=== PATIENT | female | born 1940 | race Caucasian/White ===

== ENCOUNTER 2018-03-14 19:11 | Inpatient (IN) | payer MEDICARE, OTHER ==
--- NOTE | 2018-03-14 20:37 | ED PDOC ---
Arrival/HPI - General Chief Complaint: Chest Pain Time Seen by Provider: 03/14/18 19:15 Historian: Patient - History of Present Illness Narrative History of Present Illness (Text): 03/14/18 20:42 A 77 year old female, whose past medical history includes hypertension, CVA, TIA, diabetes type 2, anemia, arthritis and depress, presents to the emergency department complaining of chest pain and right groin pain with associated bilat eral leg pain, worsens with leg movement. Patient reports PC began around 15:00 today, states when moving around she experiences chest tightness. States she took Aspirin and had relief. Patient notes also noticing right breast lump, to which she experiences pain to touch. Mentions last mammogram was 06/2017, and is due soon for her next one. Patient denies any abdominal pain, or any other complaints at this time. Denies any history of [place]. PMD: Dr. Payton Cruz Past Medical History - Provider Review Nursing Documentation Reviewed: Yes - Infectious Disease Hx of Infectious Diseases: None - Tetanus Immunization Tetanus Immunization: Up to Date - Cardiac Hx Hypertension: Yes Hx Pacemaker: No Hx Peripheral Edema: Yes - Pulmonary Hx Asthma: No - Neurological HX Cerebrovascular Accident: Yes Hx Seizures: No Hx Transient Ischemic Attacks (TIA): Yes - HEENT Hx Difficulty Chewing: No - Endocrine/Metabolic Hx Diabetes Mellitus Type 2: Yes - Hematological/Oncological Hx Anemia: Yes Hx Cancer: No - Musculoskeletal/Rheumatological Hx Arthritis: Yes - Gastrointestinal HX Swallowing Problems: Yes - Genitourinary/Gynecological Hx Hematuria: Yes - Psychiatric Hx Depression: Yes Hx Emotional Abuse: No Hx Physical Abuse: No Hx Substance Use: No - Surgical History Hx Amputation: No Hx Cholecystectomy: Yes Hx Hysterectomy: Yes Hx Tubal Ligation: Yes - Anesthesia Hx Anesthesia: No Hx Anesthesia Reactions: No Hx Malignant Hyperthermia: No - Suicidal Assessment Feels Threatened In Home Enviroment: No Family/Social History - Physician Review Nursing Documentation Reviewed: Yes Family/Social History: No Known Family HX Smoking Status: Never Smoked Hx Alcohol Use: No Hx Substance Use: No Hx Substance Use Treatment: No Allergies/Home Meds Allergies/Adverse Reactions: Allergies No Known Allergies Allergy (Verified 05/19/12 14:13) Home Medications: Home Meds Medication Instructions Recorded Confirmed DULoxetine [Cymbalta] 60 mg PO DAILY 07/17/12 07/17/12 Doxazosin Mesylate [Cardura] 1 mg PO DAILY 07/17/12 07/17/12 Valsartan [Diovan] 320 mg PO DAILY 07/17/12 07/17/12 Atorvastatin Calcium [Lipitor] 40 mg PO DAILY 09/02/12 09/02/12 Dexlansoprazole [Dexilant] 60 mg PO DAILY 09/02/12 09/02/12 Hydroxyzine Hydrochloride 25 mg PO Q8 09/02/12 09/02/12 [Hydroxyzine HCl] Nebivolol Hydrochloride [Bystolic] 2.5 mg PO DAILY 09/02/12 09/02/12 RX: Aspirin 325 mg PO DAILY 09/02/12 09/02/12 RX: Fentanyl 25 mcg TD Q3 09/02/12 09/02/12 Ropinirole Hydrochloride [Requip] 0.25 mg PO HS 09/02/12 09/02/12 SITagliptin [Januvia] 50 mg PO DAILY 09/02/12 09/02/12 Tramadol Hydrochloride [Tramadol 50 mg PO 09/02/12 09/02/12 HCl] Review of Systems - Physician Review All systems were reviewed & negative as marked: Yes - Review of Systems Cardiovascular: Chest Pain Gastrointestinal: absent: Abdominal Pain Genitourinary Female: Other (right groin pain associated with bilateral leg pain, worsens with leg movement.) Skin: Other (right-side breast lump) Physical Exam - Physical Exam Narrative Physical Exam (Text): Gen: VS reviewed, alert, well developed, well nourished, nontoxic, mild distress. ENT: normal pharynx. Eye: EOMI, PERRL. Neck: no JVD, supple, no adenopathy. CV: regular rate, regular rhythm, no rubs, no murmur, no gallops, S1, S2, pulses equal and strong. Pulm: no distress, clear to auscultation, no wheeze, no rhonchi, breath sounds equal, no rales. Abd: soft, nontender, no guarding, no rebound, no rigidity, normal bowel sounds. Ext: no edema. Skin: good color, no rash, no cyanosis. firm mass to right breast at the 9:00 position, adjacent to nipple, no abnormal skin changes, no nipple discharge. Psych: responds appropriately to questions, normal affect. Neuro: oriented x 3, CN2-12 intact grossly, motor intact, sensation intact. Vital Signs Reviewed: Yes Vital Signs Temp Pulse Resp BP Pulse Ox 03/14/18 19:45 98.8 F 63 18 160/96 H 96 Temperature: Afebrile Blood Pressure: Hypertensive Pulse: Regular Respiratory Rate: Normal Appearance: Positive for: Well-Appearing, Non-Toxic, Comfortable Pain Distress: None Mental Status: Positive for: Alert and Oriented X 3 Medical Decision Making ED Course and Treatment: 03/14/18 20:44 Impression: 77 year old female with chest pain and right groin pain with associated bilateral leg pain, worsens with leg movement. Plan: -- EKG -- Abd/Pelvis CT -- Angiography CT -- Tylenol -- Labs -- Reassess and disposition Progress Notes: 03/15/18 00:[address] murrieta, patient to be admitted for CHF. admit resident aware of case at the request of dr. murrieta. patient is concerned about a right breast mass which is clearly present on physical examination- I have personally informed the patient to catch up on mammogram and to seek consultation with a breast surgeon/specialist. patient appeared to understand this recommendation. furthermore, it appears the patient did not want her daughters to know about this her breast mass. - Lab Interpretations I have reviewed the lab results: Yes - RAD Interpretation Narrative RAD Interpretations (Text): 03/15/2018 00:08 Angio Chest CTA CLINICAL HISTORY: Sob note:pt was moving/new iv was used pt moved/unable to cooperate severely limiting exam TECHNIQUE: Axial CTA images of the chest with intravenous contrast using a pulmonary embolism protocol. Reconstructed images were created and reviewed. 564.59 mGy-cm CONTRAST: With; VISI 320 100 ml was administered without incident. COMPARISON: None provided. FINDINGS: PULMONARY ARTERIES Limited IV bolus and limited study since patient could not fully cooperate, nevertheless no definite evidence of central PE. AORTA: There is no evidence for aneurysm or dissection of the thoracic aorta. LUNGS: There is evidence for pulmonary venous congestion compatible with CHF. PLEURAL SPACES : No pleural effusion seen. No pneumothorax evident. HEART: The cardiac silhouette is enlarged. LYMPH NODES: No lymphadenopathy is evident. BONES: No focal osseous abnormality or acute fracture. UPPER ABDOMEN: Images of the upper abdomen are unremarkable. IMPRESSION: 1. The cardiac silhouette is enlarged. 2. There is evidence for pulmonary venous congestion compatible with CHF. 3. Limited IV bolus and limited study since patient could not fully cooperate, nevertheless no definite evidence of central PE. Dictator: Harish Manzano MD Radiology Orders: 03/14/18 20:18 ANGIOGRAPHY DISECTION PROTOCOL [CT] Stat 03/14/18 20:19 ABDOMEN & PELVIS [ABD & PELVIS IV CONTRAST ONLY] [CT] Stat 03/14/18 20:20 LUMBAR SPINE W/O CONTRAST [CT] Stat - EKG Interpretation EKG Interpretation (Text): 03/14/18 20:53 1931: nsr at 64 bpm, nml qrs, nml axis, nonspecific t wave abn Interpreted by ED Physician: Yes - Medication Orders Current Medication Orders: Discontinued Medications Acetaminophen (Tylenol 325mg Tab) 975 mg PO STAT STA Stop: 03/14/18 20:21 Last Admin: 03/14/18 20:35 Dose: 975 mg MAR Pain/Vitals Document 03/14/18 20:35 LA (Rec: 03/14/18 20:36 LA [id number]) Pain Reassessment Is This A Pain ReAssessment? No Location Left, Right or Bilateral Bilateral Upper or Lower Lower Intensity 5 Scale Used Numeric - Scribe Statement The provider has reviewed the documentation as recorded by the Delores Martinez Provider Scribe Attestation: All medical record entries made by the Scribe were at my direction and per sonally dictated by me. I have reviewed the chart and agree that the record accurately reflects my personal performance of the history, physical exam, medical decision making, and the department course for this patient. I have also personally directed, reviewed, and agree with the discharge instructions and disposition. Disposition/Present on Arrival - Present on Arrival Any Indicators Present on Arrival: No History of DVT/PE: No History of Uncontrolled Diabetes: No Urinary Catheter: No History of Decub. Ulcer: No History Surgical Site Infection Following: None - Disposition Have Diagnosis and Disposition been Completed?: Yes Diagnosis: CHF (congestive heart failure) Disposition: HOSPITALIZED Disposition Time: 00:29 Patient Plan: Admission Condition: STABLE Discharge Instructions (ExitCare): Heart Failure (ED) Forms: [employer] (Faroese)
[2018-03-14 20:45] LABS: HEMOGLOBIN 10.9 g/dL (12.0-16.0); MEAN CELL VOLUME 87.7 fl (80.0-105.0); MEAN CORPUSCULAR HEMOGLOBIN 27.5 pg (25.0-35.0); MEAN CORPUSCULAR HGB CONC 31.3 g/dl (31.0-37.0); RBC 3.97 10^6/uL (3.5-6.1)
[2018-03-14 20:46] LABS: BASO # 0.03 K/mm3 (0.0-2.0); BASO % 0.3 % (0.0-3.0); EOS # 0.1 (0.0-0.7); EOS % 1.6 % (1.5-5.0); GRAN # 6.17 (1.4-6.5); GRAN % 68.7 % (50.0-68.0); LYMPH % 22.4 % (22.0-35.0); MEAN PLATELET VOLUME 10.4 fl (7.0-11.0); MONO # 0.6 (0.1-0.6)
[2018-03-14 20:49] LABS: ALB/GLOB RATIO 1.1 (1.1-1.8); ALBUMIN 3.9 g/dL (3.0-4.8); ALT/SGPT 26 U/L (7-56); AST/SGOT 19 U/L (14-36); BLOOD UREA NITROGEN 20 mg/dL (7-21); CALCIUM 9.1 mg/dL (8.4-10.5); GFR NON-AFRICAN AMERICAN 48
[2018-03-14 20:50] LABS: INR 1.12; PARTIAL THROMBOPLASTIN TIME 28.9 Seconds (25.1-36.5); PROTHROMBIN TIME 12.8 SECONDS (9.4-12.5)
[2018-03-14 21:00] LABS: TROPONIN I < 0.01 ng/mL
[2018-03-14] MEDS ORDERED: Iodixanol 320 MG/ML 100 ML BOTTLE IV ONE (22:14)
[2018-03-14] MEDS ORDERED: oxyCODONE 5 mg Immediate Release Tab PO STA (23:48)
--- NOTE | 2018-03-15 01:37 | CP.PCM.HP ---
History of Present Illness - History of Present Illness History of Present Illness: Landon Monge, PGY-1, Internal Medicine History and Physical for Dr. Lobo 77 year old female with past medical history of CVA, TIA, diabetes mellitus type II, anemia, arthritis, depression, hypertension, hyperlipidemia, chronic bila teral lower extremity pain 2/2 to diabetic neuropathy, hypovitamin D, and diverticulosis presents chest pain, groin pain, right arm pain, and bilateral lower extremity pain. Chest pain was pressure like and started 2-3 days ago. She reports that was taking aspirin which was relieving the pain in the past but it no longer relieves the pain. Patient denies shortness of breath and no change in symptoms with laying back to sleep. Patient's groin pain started 3-4 weeks which has been worse with movement. Pain is better with hysingular. Bilateral lower extremity pain has been present for many years and worse with movement. There are no remitting factors. Patient has had right shoulder and arm pain for a few months, which is better with exercise and has no exacerbating factors. Patient denies current headache, change in vision, change in hearing, shortness of breath, nausea, vomiting, diarrhea, dysuria, hematuria. 12-point ROS was unremarkable except for what is mentioned above. PMH: as stated above PSH: cholecystectomy, hysterectomy, uterine polypectomy PMHx: positive for breast cancer, ovarian cancer, stomach cancer SHx: denies alcohol and drug use. Smoked once at 27 years old. denies current cigarette use Allergies: NKDA PMD: Dr. Villegas Home Rx: MAR reviewed Present on Admission - Present on Admission Any Indicators Present on Admission: No Review of Systems - Review of Systems Review of Systems: except for what is mentioned in the HPI Past Patient History - Infectious Disease Hx of Infectious Diseases: None - Tetanus Immunizations Tetanus Immunization: Up to Date - Past Social History Smoking Status: Never Smoked - CARDIAC Hx Hypertension: Yes Hx Pacemaker: No Hx Peripheral Edema: Yes - PULMONARY Hx Asthma: No - NEUROLOGICAL HX Cerebrovascular Accident: Yes Hx Seizures: No Hx Transient Ischemic Attacks (TIA): Yes - HEENT Hx Difficulty Chewing: No - ENDOCRINE/METABOLIC Hx Diabetes Mellitus Type 2: Yes - HEMATOLOGICAL/ONCOLOGICAL Hx Anemia: Yes Hx Cancer: No - MUSCULOSKELETAL/RHEUMATOLOGICAL Hx Arthritis: Yes - GASTROINTESTINAL HX Swallowing Problems: Yes - GENITOURINARY/GYNECOLOGICAL Hx Hematuria: Yes - PSYCHIATRIC Hx Depression: Yes Hx Emotional Abuse: No Hx Physical Abuse: No Hx Substance Use: No - SURGICAL HISTORY Hx Amputation: No Hx Cholecystectomy: Yes Hx Hysterectomy: Yes Hx Tubal Ligation: Yes - ANESTHESIA Hx Anesthesia: No Hx Anesthesia Reactions: No Hx Malignant Hyperthermia: No Meds Allergies/Adverse Reactions: Allergies Allergy/AdvReac Type Severity Reaction Status Date / Time No Known Allergies Allergy Verified 05/19/12 14:13 Physical Exam - Constitutional Appears: Well, Non-toxic, No Acute Distress - Head Exam Head Exam: ATRAUMATIC, NORMAL INSPECTION, NORMOCEPHALIC - Eye Exam Eye Exam: EOMI, PERRL - ENT Exam ENT Exam: Mucous Membranes Moist - Neck Exam Neck exam: Positive for: Normal Inspection - Respiratory Exam Respiratory Exam: Clear to Auscultation Bilateral, NORMAL BREATHING PATTERN - Cardiovascular Exam Cardiovascular Exam: REGULAR RHYTHM, RRR - GI/Abdominal Exam GI & Abdominal Exam: Normal Bowel Sounds, Soft. absent: Tenderness Additional comments: obese - Extremities Exam Extremities exam: Positive for: full ROM Additional comments: nonpitting edema in bilateral lower extremities - Back Exam Back exam: tenderness (right lumbar) - Neurological Exam Neurological exam: Alert, CN II-XII Intact, Normal Gait, Oriented x3 - Skin Skin Exam: Dry, Intact, Normal Color Results - Vital Signs Recent Vital Signs: Last Vital Signs Temp 98.5 F 03/15/18 00:31 Pulse 60 03/15/18 00:31 Resp 18 03/15/18 00:31 BP 150/71 03/15/18 00:56 Pulse Ox 97 03/15/18 00:31 - Labs Result Diagrams: 03/14/18 20:30 03/14/18 20:30 Labs: Laboratory Results - last 24 hr 03/14/18 03/14/18 03/14/18 20:30 20:30 20:30 WBC 9.0 RBC 3.97 Hgb 10.9 L Hct 34.8 L MCV 87.7 MCH 27.5 MCHC 31.3 RDW 13.0 Plt Count 231 MPV 10.4 Gran % 68.7 H Lymph % (Auto) 22.4 [place] % (Auto) 7.0 H Eos % (Auto) 1.6 Baso % (Auto) 0.3 Gran # 6.17 Lymph # (Auto) 2.0 [place] # (Auto) 0.6 Eos # (Auto) 0.1 Baso # (Auto) 0.03 PT 12.8 H INR 1.12 APTT 28.9 Sodium 136 Potassium 4.6 Chloride 99 Carbon Dioxide 31 Anion Gap 11 BUN 20 Creatinine 1.1 Est GFR ( Amer) 58 Est GFR (Non-Af Amer) 48 Random Glucose 98 Calcium 9.1 Total Bilirubin 0.7 AST 19 ALT 26 Alkaline Phosphatase 96 Troponin I < 0.01 Total Protein 7.5 Albumin 3.9 Globulin 3.6 Albumin/Globulin Ratio 1.1 Assessment & Plan - Assessment and Plan (Free Text) Assessment: 77 year old female with past medical history of CVA, TIA, diabetes mellitus type II, anemia, arthritis, depression, hypertension, hyperlipidemia, chronic bilateral lower extremity pain 2/2 to diabetic neuropathy, hypovitamin D, and diverticulosis presents chest pain, groin pain, right arm pain, and bilateral lower extremity pain. Diffuse body aches and fatigue Rule out CHF exacerbation Atypical Chest pain Chronic lower extremity pain likely 2/2 to diabetic neuropathy Anemia DM II HTN HLD Hypovitamin D Anxiety Depression Insomnia Plan: Diffuse body aches and fatigue -Secondary to rheumatoid arthritis vs. fibromyalgia -Duloxetine 60 mg daily -Morphine 1 mg Q6 for pain -Dr. Mcneill consulted for further recs. Rule out CHF exacerbation -Chest CT shows evidence of pulmonary vascular congestion -Echocardiogram in the AM -BNP -Continue home bystolic -Lasix 40 mg IV daily. Potassium 40 mEq for lasix side effect of hypokalemia Atypical Chest pain -EKG: NSR -Troponinx1 negative -Follow up troponin Q4x3 -Continue home aspirin, lipitor, and bystolic. -Dr. Fowler, Cardiology, consulted for further recs. Chronic lower extremity pain likely 2/2 to diabetic neuropathy -Bilateral lower extremity venous doppler ordered -Gabapentin 100 mg TID History of anemia -Normocytic anemia of baseline at 10.9 DM II -Random glucose: 98 -Low SSI HTN -BP: 143/66 -Continue home bystolic. HLD -Continue home lipitor Hypovitamin D -Bone scan full body in the morning -Vitamin D level ordered -Currently taking no medications Gout -Continue home febuxostat. Anxiety and depression -Continue with home duloxetine Insomnia -Ambien PO HS DVT prophylaxis: lovenox 40 mg daily GI prophylaxis: protonix 40 mg daily Patient plan discussed with Dr. Lobo. - Date & Time Date: 03/15/18 Time: 02:00
[2018-03-15 02:41] LABS: B-TYPE NATRIURETIC PEPTIDE 759 pg/mL (0-450); TROPONIN I < 0.01 ng/mL
[2018-03-15] MEDS: Morphine 2 mg/ml ISec IVP PRN ×3 (03:16→23:04)
[2018-03-15 03:36] VITALS: BMI 58.1
[2018-03-15 05:54] LABS: BASO # 0.02 K/mm3 (0.0-2.0); BASO % 0.2 % (0.0-3.0); EOS # 0.1 (0.0-0.7); EOS % 1.6 % (1.5-5.0); GRAN # 5.3 (1.4-6.5); GRAN % 61.9 % (50.0-68.0); HEMOGLOBIN 10.7 g/dL (12.0-16.0); LYMPH # 2.4 (1.2-3.4); LYMPH % 28.1 % (22.0-35.0); MEAN CELL VOLUME 86.8 fl (80.0-105.0); MEAN CORPUSCULAR HEMOGLOBIN 27.7 pg (25.0-35.0); MEAN CORPUSCULAR HGB CONC 31.9 g/dl (31.0-37.0); MEAN PLATELET VOLUME 10.2 fl (7.0-11.0); MONO # 0.7 (0.1-0.6); MONO % 8.2 % (1.0-6.0); RBC 3.86 10^6/uL (3.5-6.1); RED CELL DISTRIBUTION WIDTH 13.1 % (11.5-14.5); WHITE BLOOD COUNT 8.6 10^3/uL (4.5-11.0)
[2018-03-15 06:20] LABS: ALB/GLOB RATIO 1.1 (1.1-1.8); ALBUMIN 3.9 g/dL (3.0-4.8); ALT/SGPT 23 U/L (7-56); AST/SGOT 29 U/L (14-36); BLOOD UREA NITROGEN 19 mg/dL (7-21); CALCIUM 9.3 mg/dL (8.4-10.5); GFR NON-AFRICAN AMERICAN 48; TROPONIN I < 0.01 ng/mL
[2018-03-15] MEDS: Insulin Reg-LOW-Coverage SC SCH ×4 (07:30→22:40)
[2018-03-15 08:28] LABS: IRON 110 ug/dL (45-180)
[2018-03-15 08:37] LABS: % IRON SATURATION 41 % (20-55); TOTAL IRON BINDING CAPACITY 272 ug/dL (265-497)
[2018-03-15] MEDS ORDERED: NEBIVOLOL 2.5 MG PO SCH (10:00)
[2018-03-15] MEDS ORDERED: Enoxaparin 40 mg Syringe SC SCH (10:00)
[2018-03-15] MEDS ORDERED: Potassium Chloride 20 mEq ER Tab PO SCH (10:00)
[2018-03-15] MEDS ORDERED: HYDROCODONE BITARTRATE 30 MG PO SCH (10:00)
[2018-03-15 10:02] LABS: HDL CHOLESTEROL 47 mg/dL (29-60)
[2018-03-15 10:13] LABS: LDL CHOLESTEROL 57 mg/dL (0-129)
[2018-03-15] MEDS: POLYETHYLENE GLYCOL 3350 17 GM/Dose PACKET PO SCH ×3 (10:15→18:24)
[2018-03-15 10:16] LABS: TROPONIN I < 0.01 ng/mL
[2018-03-15 10:20] LABS: FREE T4 1.02 ng/dL (0.78-2.19); T4 8.6 ug/dL (5.5-11.0)
--- NOTE | 2018-03-15 11:42 | CT ---
Date of service: 03/14/2018 CTA chest PE protocol Indication: pulmonary embolism Technique: Contiguous axial images were obtained through the chest with intravenous contrast enhancement. Sagittal and coronal reconstructions were generated and reviewed. This CT exam was performed using 1 or more of the following dose reduction techniques: Automated exposure control, adjustment of the MAA and/or kV according to patient size, and/or use of iterative reconstruction technique. IV contrast: 100 mL Visipaque 320 IV Radiation dose (DLP): 1123.88 MGy-cm. Comparison: Chest x-ray performed 09/25/12, noncontrast chest small performed 06/28/09 Findings: Examination limited by patient motion. The mediastinal and hilar vascular structures appear grossly unremarkable. Heart size appears borderline enlarged. Atherosclerotic calcifications of the aorta. There is inadequate opacification of the pulmonary arteries due to missed bolus of the intravenous contrast precluding evaluation for pulmonary embolus. No focal consolidation. No pleural effusion. No pneumothorax. 2 mm right upper lobe pulmonary nodule. Limited visualized portions of the upper abdomen appear grossly unremarkable. Degenerative changes. Impression: There is inadequate opacification of the pulmonary arteries due to missed bolus of the intravenous contrast precluding evaluation for pulmonary embolus. 2 mm right upper lobe pulmonary nodule. In the absence of risk factors for lung cancer, no specific imaging follow-up is required. If the patient is a smoker or has other risk factors, follow-up CT at 12 months is recommended to document stability. Borderline cardiomegaly. Preliminary impression was provided by [employer].Study marked for PA review.
--- NOTE | 2018-03-15 11:54 | CP.PCM.PCO ---
Physician Communication Note - Physician Communication Note Physician Communication Note: cardiac cath 03/18/17, diagnosting testing pending, consults pending
[2018-03-15] MEDS: Heparin25000 units/250ml 1/2NS 25,000 UNITS/250 ML BAG IV SCH (12:22)
[2018-03-15 12:48] LABS: FERRITIN 35.3 ng/mL
[2018-03-15 12:53] LABS: INR 1.13
--- NOTE | 2018-03-15 12:58 | HP ---
DATE OF EXAM: 03/15/2018 HISTORY OF PRESENT ILLNESS: The patient is a 77-year-old morbidly obese female who has been lost to followup for almost 3-4 years and has been mostly homebound was brought into the emergency room last night via [facility], complaining of chest pain, difficulty sleeping, abdominal pain, groin pain and bilateral leg pain with increasing pain upon movement. Also complaining of right-sided breast pain, ribcage pain. The patient reports that the chest pain was relieved with the aspirin. The patient vital signs, lab data, past medical history, all diagnostic data reviewed. Please refer to the history and physical examination done by the medical assisting instructor for further details. IMPRESSION: 1. Diffuse myalgias. 2. History of hypertension. 3. Normocytic anemia. 4. Questionable anterior ischemia as per EKG with questionable angina. 5. History of insomnia. 6. History of sinus bradycardia. 7. Transient ischemic infarct with right-sided facial numbness and questionable dysarthria. 8. Diabetic neuropathy. 9. Pulmonary hypertension with right ventricular systolic pressure of 50 mmHg. 10. Severe osteoarthritis and degenerative joint disease of the hips and knees. 11. 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 PLAN: At this time is the patient is to be admitted to [facility] telemetry. The patient has been ordered B12. CPK, CRP, ferritin, iron studies, hemoglobin A1c, lipid panel, thyroid panel, LANA, C-reactive protein, rheumatoid factor, CBC, retic count ordered. The patient has been ordered GI consultation for evaluation of anemia. Cardiology consultation for evaluation of diastolic congestive heart failure. Orthopedic evaluation for multiple joint pain complaints. The patient is ordered Ambien 5 mg At bedtime, Cardura 1 mg daily, Colace 100 mg three times a day, Cymbalta 60 mg daily, aspirin 81 mg daily, folic acid 1 mg daily, Humulin low-dose sliding scale coverage before meals and at bedtime, K-Dur 20 mEq daily, Lasix 40 mg IV push daily, Lipitor 10 mg daily, Lovenox 40 mg subcu daily, Lyrica 25 mg twice a day, MiraLax 17 g twice a day, morphine 1 mg IV every 4 hours p.r.n., Percocet mg p.o. daily, Senokot 8.6 mg daily Tylenol 650 p.o. suppository every 6 hours p.r.n., Zofran 4 mg IV every 4 hours p.r.n., venous Doppler of the lower extremity has been ordered of the lower extremity, bone scan has been ordered. The patient's CT angio was negative, oxygen has been ordered, repeat EKG has been ordered, echo with Doppler ordered. The patient is on consistent carbohydrate diet, ROSEANN stockings, SCDs, out of bed, physical therapy, occupational therapy ordered. At present, the patient is admitted to [facility], bed 1. The patient's further management will be dependent upon the patient's clinical condition, hemodynamic status and as per the patient response to therapeutic intervention as per the patient's diagnostic test results and as per recommendation by all the physician involved in the care of the patient. Dictated and electronically signed, not read. Tomás Lobo MD
--- NOTE | 2018-03-15 13:43 | CON ---
DATE: 03/15/2018 CARDIOLOGY CONSULTATION HISTORY: The patient is a 77-year-old woman who presents with excruciating substernal chest discomfort. PAST MEDICAL HISTORY: The patient's past medical history is notable for history of multiple TIAs in the past. She suffers from hypertension, diabetes mellitus. She is essentially bed-bound at home, has been taken care by her daughter at home. The patient is awake, alert. SOCIAL HISTORY: She denies smoking. REVIEW OF SYSTEMS: Fourteen-point review of systems is reviewed in detail. She does suffer from angina, hypertension, diabetes mellitus, and hypercholesterolemia. She denies edema. No previous peptic ulcer disease. No bleeding history. PHYSICAL EXAMINATION: VITAL SIGNS: Blood pressure is 142/56, the heart rates in the 60s, normal sinus rhythm. NECK: Negative JVD. LUNGS: Decreased breath sounds. HEART: Reveals S1, S2. EXTREMITIES: No edema noted. DIAGNOSTIC DATA: EKG, normal sinus rhythm with nonspecific ST-T changes. LABORATORY DATA: Troponins are negative x3. The BUN and creatinine is unremarkable. The ProBNP is 242. IMPRESSION: 1. Unstable angina. 2. No evidence for acute myocardial infarction. 3. History of transient ischemic attack/cerebrovascular accident. 4. Hypertension. 5. Diabetes mellitus. 6. Hypercholesterolemia. 7. High probability for coronary artery disease. Given these findings, the patient is for echocardiogram today. We will start the patient on aspirin and Plavix as well as IV heparin. An echocardiogram is ordered. Given the high probability for CAD, cardiac catheterization would be appropriate. I have discussed with the daughter. We will schedule for catheterization on Sunday in the morning. Jerardo Fowler MD
--- NOTE | 2018-03-15 16:03 | CARD ---
APPROVED REPORT Date of service: 03/15/2018 EXAM: Two-dimensional and M-mode echocardiogram with Doppler and color Doppler. INDICATION Congestive Heart Failure 2D DIMENSIONS Left Atrium (2D)4.8 (1.6-4.0cm)IVSd1.3 (0.7-1.1cm) LVDd4.9 (3.9-5.9cm)PWd1.3 (0.7-1.1cm) LVDs3.3 (2.5-4.0cm)FS (%) 32.4 % LVEF (%)60.6 (>50%) M-Mode DIMENSIONS Aortic Root3.30 (2.2-3.7cm)Aortic Cusp Exc.1.90 (1.5-2.0cm) Aortic Valve AoV Peak Tizwoodv391.0cm/Juan Peak GR.7mmHg Mitral Valve MV E Vljitvom17.6cm/sMV A Zoqztybu65.3cm/sE/A ratio0.8 TDI Lateral E' Peak V9.75cm/sMedial E' Peak V6.24cm/sE/Lateral E'6.0 E/Medial E'9.4 Pulmonary Valve PV Peak Uuitsipq32.6cm/sPV Peak Grad.2mmHg Tricuspid Valve TR Peak Kdwozisp883fu/sRAP [id number] Peak Gr.38mmHg [id number] LEFT VENTRICLE The left ventricle is normal size. There is borderline to mild concentric left ventricular hypertrophy. The left ventricular function is normal. The left ventricular ejection fraction is within the normal range. There is normal LV segmental wall motion. Transmitral Doppler flow pattern is Grade I-abnormal relaxation pattern. RIGHT VENTRICLE The right ventricle is normal size. There is normal right ventricular wall thickness. The right ventricular systolic function is normal. ATRIA The left atrium is mildly dilated. The right atrium is mildly dilated. AORTIC VALVE The aortic valve is not well visualized. No aortic regurgitation is present. There is no aortic valvular stenosis. MITRAL VALVE The mitral valve is normal in structure. Mitral regurgitation is trace to mild. TRICUSPID VALVE There is mild tricuspid regurgitation. There is mild to moderate pulmonary hypertension. PULMONIC VALVE There is mild pulmonic valvular regurgitation. GREAT VESSELS The aortic root is normal in size. The IVC is normal in size and collapses >50% with inspiration. PERICARDIAL EFFUSION There is a trace loculated anterior pericardial effusion. <Conclusion> There is borderline to mild concentric left ventricular hypertrophy. The left ventricular function is normal. The left ventricular ejection fraction is within the normal range. There is normal LV segmental wall motion. Transmitral Doppler flow pattern is Grade I-abnormal relaxation pattern. There is mild tricuspid regurgitation. There is mild to moderate pulmonary hypertension.
--- NOTE | 2018-03-15 17:12 | NM ---
Date of service: 03/15/2018 PROCEDURE: Whole Body Bone Scan HISTORY: hypovitamin D COMPARISON: 06/01/2009 bone scan TECHNIQUE: Following administration of 28.9 miCu of Tc MDP multiplanar whole body images were obtained. FINDINGS: Evidence for bony metastatic disease: None. Degenerative uptake: Bilateral shoulders and knees. Similar findings identified on the prior study. Physiologic uptake: Normal physiologic activity in the kidneys. Other findings: Intense uptake in the left calcaneus a finding not seen previously. IMPRESSION: No evidence of bony metastatic disease. Degenerative changes as described.
[2018-03-15 17:30] LABS: FOLATE > 20.0 ng/mL
--- NOTE | 2018-03-15 18:01 | US ---
HISTORY: Leg pain and swelling. Evaluate for DVT PHYSICIAN(S): Jerardo Christensen MD. TECHNIQUE: Duplex sonography and color-flow Doppler with graded compression were used to evaluate the deep venous systems of both lower extremities. The exam is extremely limited due to body habitus, edema, and inability to cooperate hep. The lower femoral veins and tibial veins are not adequately seen FINDINGS: The visualized deep venous systems of both lower extremities are sonographically normal and compressible. Normal wave forms and augmentation are seen. There is no sonographic evidence for deep venous thrombosis in the visualized segments of both lower extremities. IMPRESSION: No sonographic evidence for deep venous thrombosis in the visualized segments of both lower extremities. Very limited study
--- NOTE | 2018-03-15 18:18 | CON ---
DATE: 03/15/2018 REQUESTING PHYSICIAN: Dr. Lobo. REASON FOR CONSULTATION: I have been asked to see this 77-year-old female with multiple comorbidities including morbid obesity, diabetes mellitus type 2, diabetic neuropathy, CVA, TIA, chronic anemia, degenerative joint disease, hypertension, hyperlipidemia, depression, who comes to the hospital with 2-3 day history of substernal chest pain. She denies any shortness of breath or palpitations with the chest pain. She denies any reflux or indigestion. She has good appetite. She denies nausea, vomiting, rectal bleeding, melena, or diarrhea. PAST MEDICAL HISTORY: Past medical history is as above. Again, she has a history of morbid obesity, type 2 diabetes mellitus, chronic anemia, TIA, CVA, degenerative joint disease, hyperlipidemia, depression, diabetic neuropathy, breast cancer, ovarian cancer, and stomach cancer in the distant past. PAST SURGICAL HISTORY: Past surgical history is notable for cholecystectomy, hysterectomy, uterine myomectomy. SOCIAL HISTORY: She denies cigarette smoking or alcohol use. FAMILY HISTORY: Noncontributory. REVIEW OF SYSTEMS: Fourteen-point review of systems is notable for substernal chest pain; groin pain, worse with movement; and chronic foot pain. MEDICATIONS: Medications at home include Januvia, Hysingla, Cymbalta, Uloric, aspirin, folic acid, Lipitor, Lasix, Bystolic, Cardura, and Dexilant. PHYSICAL EXAMINATION: GENERAL: Obese female lying in bed, in no acute distress. BMI is 48.1. VITAL SIGNS: Reveal temperature of 98.4, blood pressure 142/56, heart rate of 60. HEENT: Reveal sclerae to be white. Conjunctivae pale. NECK: Neck is supple. CHEST: Lungs are clear. HEART: Exam reveals regular rate and rhythm. ABDOMEN: Obese, soft, nontender. EXTREMITIES: Show no edema. LABORATORY DATA: Reveal hemoglobin of 10.6, this has been stable over 24 hours; white blood cell count 8.6; reticulocyte count is 0.88. Sed rate is 16. Chemistries reveal normal AST, ALT, alk phos. Normal troponin. Normal iron studies with a ferritin of 40 with a percent iron saturation of 41%. IMPRESSION: 1. Atypical chest pain with normal troponins in a patient with diabetes mellitus, hypertension, cerebrovascular accident. 2. Chronic anemia. Her iron studies are normal. I went back to her CBC from 12/2012, which reveals her hemoglobin to be at exactly the same level of 10.6. There is no evidence of overt gastrointestinal bleeding. I suspect that the anemia is anemia of chronic disease. RECOMMENDATIONS: No further workup is planned at this time for this morbidly obese 77-year-old female with multiple comorbidities. Miles Todd MD
--- NOTE | 2018-03-15 19:52 | CARD ---
APPROVED REPORT Date of service: 03/15/2018 EKG Measurement Heart [id number] <Conclusion> Normal sinus rhythm ST & T wave abnormality, consider anterolateral ischemia Abnormal ECG
--- NOTE | 2018-03-15 20:23 | CARD ---
APPROVED REPORT Date of service: 03/14/2018 EKG Measurement Heart [id number] <Conclusion> Normal sinus rhythm ST & T wave abnormality, consider anterior ischemia Abnormal ECG
[2018-03-15] MEDS ORDERED: DICLOFENAC TOP SCH (22:00)
[2018-03-16 04:40] LABS: ALBUMIN 3.7 g/dL (3.0-4.8)
[2018-03-16] MEDS: Pantoprazole 40 mg EC Tab PO SCH (06:40)
[2018-03-16] MEDS: Insulin Reg-LOW-Coverage SC SCH ×4 (08:24→21:56)
[2018-03-16] MEDS ORDERED: Ergocalciferol 50,000 Intl Units Cap PO SCH (10:00)
[2018-03-16] MEDS: POLYETHYLENE GLYCOL 3350 17 GM/Dose PACKET PO SCH ×2 (10:38→18:12)
[2018-03-16] MEDS: Heparin25000 units/250ml 1/2NS 25,000 UNITS/250 ML BAG IV SCH (10:56)
[2018-03-16 14:30] LABS: ALDOLASE 3.9 U/L (<=8.1)
[2018-03-16] MEDS: DICLOFENAC TOP SCH (18:02)
[2018-03-17] MEDS: Pantoprazole 40 mg EC Tab PO SCH (06:32)
[2018-03-17] MEDS: Insulin Reg-LOW-Coverage SC SCH ×4 (07:30→22:06)
[2018-03-17 07:58] LABS: ALB/GLOB RATIO 1.1 (1.1-1.8); ALBUMIN 3.6 g/dL (3.0-4.8); CALCIUM 8.6 mg/dL (8.4-10.5)
[2018-03-17] MEDS: POLYETHYLENE GLYCOL 3350 17 GM/Dose PACKET PO SCH ×2 (10:50→17:34)
[2018-03-17] MEDS: DICLOFENAC TOP SCH ×2 (10:50→17:33)
[2018-03-17] MEDS: Heparin25000 units/250ml 1/2NS 25,000 UNITS/250 ML BAG IV SCH ×2 (12:24→20:38)
--- NOTE | 2018-03-17 13:51 | PQF ---
PROVIDER RESPONSE TEXT: DEFER TO CARDIOLOGY REVIEWER QUERY TEXT: CHF Acuity and Type Congestive Heart Failure is documented in the Medical Record. Please document the type and acuity (in cludes probable or suspected) Such as: Type: -- Systolic -- Diastolic -- Combined -- Other, please specify Acuity: -- Acute -- Chronic -- Acute on chronic -- Other, please specify Also please document the underlying cause of the CHF (includes probable or suspected) The patient's Clinical Indicators include: Please specify acuity. Query created by: Halima Johnson on 03/15/2018 1:56 PM Electronically signed by: Tomás Lobo MD 03/17/2018 1:48 PM
--- NOTE | 2018-03-17 19:48 | PN ---
DATE: 03/17/2018 SUBJECTIVE: The patient is seen lying in the bed in room 264, bed 1. The patient is comfortable, sleeping. Overnight nurse's notes were reviewed. The patient stayed alert, awake, and oriented x3. The patient's pain symptoms have improved. The patient slept well with sleeping pill Ambien. OBJECTIVE: VITAL SIGNS: T-max 97.7. Telemetry shows sinus rhythm, heart rate 66, 68, and 59. Blood pressure 135/77, 163/62, 135/62, 132/60, 124/69, respirations 18, and O2 sat 95%. HEENT: Head; normocephalic and atraumatic. HEENT examination shows pinkish conjunctivae. Anicteric sclerae. No oropharyngeal lesion. NECK: No neck rigidity. CHEST: Kyphosis. LUNGS: Shows no audible crackle, rales or wheezing. CARDIOVASCULAR: S1 and S2, regular rhythm. Positive systolic murmur left sternal border, right second intercostal space, left second intercostal space. ABDOMEN: Soft and obese. Positive bowel sounds. No palpable hepatosplenomegaly. GENITALIA: Female. RECTAL: Deferred. EXTREMITIES: Shows positive ROSEANN stockings. MUSCULOSKELETAL: Shows a body mass index of 48. NEUROLOGIC: The patient is alert, awake, responsive, is able to move upper and lower extremity without assistance, but needs assistance to sit up from the lying position. DIAGNOSTIC DATA: PTT 51. Sodium 135, potassium 4.1, chloride 99, CO2 of , anion gap 9, BUN 32, creatinine 1.3, GFR 48, glucose 130, and calcium 8.6. LFTs are normal. IMPRESSION AND PLAN: 1. Chest pain, most likely unstable angina with abnormal electrocardiogram and anterior ischemia on the electrocardiogram. 2. Diffuse arthralgias and polyarthralgias and arthritis. 3. Hypertension. 4. Morbid obesity with elevated body mass index of 48. 5. Severe gait dysfunction and severe deconditioning. 6. Severe pain syndrome. 7. Normocytic anemia. 8. Mild acute kidney injury with chronic kidney disease stage III. 9. Borderline vitamin B12 deficiency and borderline hypovitaminosis D. 10. History of diabetes with hemoglobin A1c of 5.9, probably prediabetic now. 11. Positive rheumatoid factor. 12. Severe gait dysfunction. 13. Degenerative joint disease of shoulders and knees and degenerative joint disease of the feet and calcaneus. 14. A 2-mm right upper lobe pulmonary nodule. 15. Degenerative joint disease of the spine. 16. Borderline cardiomegaly. 17. Insomnia. 18. History of sinus bradycardia. 19. Diabetic neuropathy. 20. History of pulmonary hypertension. 21. Severe osteoarthritis and degenerative joint disease of the hips and knees. 22. Left ventricular ejection fraction of 60% with concentric left ventricular hypertrophy and grade 1 abnormal relaxation pattern. 23. Mildly dilated right and left atrium. 24. Mild mitral regurgitation. 25. Moderate pulmonary hypertension with mild tricuspid regurgitation and right ventricular systolic pressure of 48 mmHg. 26. Anterolateral coronary ischemia as per electrocardiogram. 27. History of transient ischemic infarct. 28. Anemia of chronic disease. 1. Diffuse myalgias. 2. History of hypertension. 3. Normocytic anemia. 4. Questionable anterior ischemia as per EKG with questionable angina. 5. History of insomnia. 6. History of sinus bradycardia. 7. Transient ischemic infarct with right-sided facial numbness and questionable dysarthria. 8. Diabetic neuropathy. 9. Pulmonary hypertension with right ventricular systolic pressure of 50 mmHg. 10. Severe osteoarthritis and degenerative joint disease of the hips and knees. 11. 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 Plan at this time, the patient has been ordered repeat CMP. The patient's LANA screen is pending. Anti-CCP is pending. Current consultation; Cardiology and Gastroenterology. The patient's case referred for diabetic education, TCU evaluation. Current medications; Ambien 5 mg at bedtime, Cardura 1 mg daily, Colace 100 mg three times a day, Drisdol 50,000 units weekly, Duragesic patch 25 mcg every 72 hours, Ecotrin 81 mg daily, folic acid 1 mg daily, heparin drip as ordered, Voltaren gel to affected area, Humalog low-dose sliding scale coverage a.c. and at bedtime, Lipitor 10 mg daily Lyrica 25 mg twice a day, MiraLax 17 g twice a day, morphine 1 mg IV every 4 hours p.r.n., Plavix 75 mg daily, Protonix 40 mg daily, and Senokot 8.5 mg daily at bedtime. The patient is on Tylenol 650 mg p.o. suppository every 6 hours p.r.n., vitamin B12 1000 mcg IM daily, Zofran 4 mg IV every 4 hours p.r.n., oxygen 2 L, consistent carbohydrate diet, ROSEANN stockings, head of the bed at 30 degrees, SCDs, physical therapy, and occupational therapy ordered. The patient seen by physical therapist, their recommendation was physical therapy five times per week home with services. The patient's daughters, Brenda and Angela updated about the patient's condition, diagnosis, clinical condition, overall guarded to poor prognosis which they acknowledged and understand. All questions concerned answered. Dictated and electronically signed, not read. Tomás Lobo MD NO[facility]
[2018-03-18] MEDS: Pantoprazole 40 mg EC Tab PO SCH (06:35)
[2018-03-18] MEDS ORDERED: Lidocaine 2% Inj (20ml) ONE (06:47)
[2018-03-18] MEDS ORDERED: Heparin 2,000 ML IV ONE (06:48)
[2018-03-18] MEDS ORDERED: Iohexol 350mgl/ml 50 ML ONE (06:48)
[2018-03-18] MEDS ORDERED: Phenylephrine 10 mg/ml Inj ONE (06:48)
[2018-03-18] MEDS ORDERED: Nitroglycerin 50mg in D5W 0 MG/0 ML BOTTLE IV ONE (06:48)
[2018-03-18] MEDS ORDERED: Iodixanol 320 MG/ML 200 ML BOTTLE IV ONE (06:48)
[2018-03-18] MEDS ORDERED: Iodixanol 320 MG/ML 100 ML BOTTLE IV ONE (06:48)
[2018-03-18 08:06] LABS: ALB/GLOB RATIO 1.1 (1.1-1.8); ALBUMIN 3.6 g/dL (3.0-4.8); ALT/SGPT 21 U/L (7-56); AST/SGOT 16 U/L (14-36); BLOOD UREA NITROGEN 27 mg/dL (7-21); GFR NON-AFRICAN AMERICAN 54
[2018-03-18] MEDS ORDERED: Midazolam 2 MG/2 ML VIAL ONE (08:22)
--- NOTE | 2018-03-18 08:52 | PN ---
DATE: 03/16/2018 SUBJECTIVE: The patient is seen in room 264, bed 1. The patient is seen lying in the bed. Overnight, nurse's notes were reviewed. The patient is complaining of severe pain for which the patient required morphine, and then the patient was placed on low-dose Duragesic patch for continued pain, the pain relived today morning. The patient said the pa is less since the patient started on Duragesic patch and p.r.n. morphine. PHYSICAL EXAMINATION: VITAL SIGNS: T-max 98.4. Telemetry shows sinus rhythm, sinus bradycardia, heart rates 77, 67, 57, 63. Blood pressure 124/69, respirations 19, and O2 sat is 95% to 97%. HEENT: Head Examination: Normocephalic and atraumatic. HEENT examination shows pinkish conjunctivae, anicteric sclerae, no oropharyngeal lesion, no neck rigidity. CHEST: Kyphosis. LUNGS: No audible crackle, rales or wheezing. CARDIOVASCULAR: S1 and S2, regular rhythm. Positive systolic murmur in left sternal border, right second intercostal space, and left second intercostal space. ABDOMEN: Morbidly obese. No palpable hepatosplenomegaly noted. GENITALIA: Female. RECTAL: Deferred. EXTREMITIES: Trace swelling of the lower extremities. MUSCULOSKELETAL: Shows body mass index of 48. NEUROLOGIC: The patient is alert, awake, and responsive. Gait examination could not be tested. DIAGNOSTICS: PTT is 64.5 and 60.4. Sodium 137, potassium 4.1, chloride 99, CO2 of 32, anion gap 10, BUN 45, creatinine 1.4, which is gone up. Fingerstick blood sugar 108, 109, 111. Calcium 9, phosphorus 4.7, magnesium 2. LFTs are normal. Rheumatoid factor interpretation is positive. LANA is pending. Bone scan results were noted. Echocardiogram results were reviewed and noted. The patient was seen and evaluated by Gastroenterology and Cardiology. Their recommendations were noted. IMPRESSION AND PLAN: 1. Unstable angina with abnormal electrocardiogram and anterior wall ischemia. 2. History of hypertension. 3. Sinus bradycardia. 4. Super morbid obesity with elevated body mass index of 48. 7. Acute kidney injury, probably diuretics induced. 8. Borderline vitamin B12 deficiency. 9. Hypovitaminosis D . 10. History of diabetes 12. Positive rheumatoid arthritis factor. 13. Left ventricular ejection fraction of 61%. 14. Moderate pulmonary hypertension with right ventricular systolic pressure of 48 mmHg. 15. Hypertensive cardiovascular disease with left ventricular hypertrophy. 16. Grade I abnormal relaxation pattern. 17. Mild mitral regurgitation. 18. Degenerative joint of the shoulders and knees. 19. Mild venous stasis in the upper and lower extremities. 20. Cardiomegaly. 21. Degenerative joint disease of the spine. 22. Right upper lobe pulmonary nodule. 23. A 2-mm right upper lobe pulmonary nodule. 24. Abnormal electrocardiogram. 25. Chronic anemia. 26. Constipation. 27. Neuropathy. 28. Severe pain syndrome secondary to degenerative joint disease. 29. Hyperlipidemia. 1. Chest pain, most likely unstable angina with abnormal electrocardiogram and anterior ischemia on the electrocardiogram. 2. Diffuse arthralgias and polyarthralgias and arthritis. 3. Hypertension. 4. Morbid obesity with elevated body mass index of 48. 5. Severe gait dysfunction and severe deconditioning. 6. Severe pain syndrome. 7. Normocytic anemia. 8. Mild acute kidney injury with chronic kidney disease stage III. 9. Borderline vitamin B12 deficiency and borderline hypovitaminosis D. 10. History of diabetes with hemoglobin A1c of 5.9, probably prediabetic now. 11. Positive rheumatoid factor. 12. Severe gait dysfunction. 13. Degenerative joint disease of shoulders and knees and degenerative joint disease of the feet and calcaneus. 14. A 2-mm right upper lobe pulmonary nodule. 15. Degenerative joint disease of the spine. 16. Borderline cardiomegaly. 17. Insomnia. 18. History of sinus bradycardia. 19. Diabetic neuropathy. 20. History of pulmonary hypertension. 21. Severe osteoarthritis and degenerative joint disease of the hips and knees. 22. Left ventricular ejection fraction of 60% with concentric left ventricular hypertrophy and grade 1 abnormal relaxation pattern. 23. Mildly dilated right and left atrium. 24. Mild mitral regurgitation. 25. Moderate pulmonary hypertension with mild tricuspid regurgitation and right ventricular systolic pressure of 48 mmHg. 26. Anterolateral coronary ischemia as per electrocardiogram. 27. History of transient ischemic infarct. 28. Anemia of chronic disease. 1. Diffuse myalgias. 2. History of hypertension. 3. Normocytic anemia. 4. Questionable anterior ischemia as per EKG with questionable angina. 5. History of insomnia. 6. History of sinus bradycardia. 7. Transient ischemic infarct with right-sided facial numbness and questionable dysarthria. 8. Diabetic neuropathy. 9. Pulmonary hypertension with right ventricular systolic pressure of 50 mmHg. 10. Severe osteoarthritis and degenerative joint disease of the hips and knees. 11. 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 MiraLax 17 g twice a day, morphine 1 mg IV every 4 hours p.r.n., Plavix 75 mg daily, Protonix 40 mg daily, Senokot 8.6 mg daily, Tylenol 650 mg p.o. suppository every 6 hours p.r.n., vitamin B12 1000 mcg IM daily, Zofran 4 mg IV every 4 hours. Incentive spirometry, oxygen, ROSEANN stockings, SCDs, out of bed, physical therapy and occupation therapy ordered. The patient will have a repeat lab work done . IV Lasix has been discontinued. The patient has been continuing of IV heparin drip. At present, the patient will be continued on the above therapeutic intervention when the patient is stable. The patient is going to be awaiting for cardiac catheterization. Dictated and electronically signed, not read. Tomás Lobo MD [facility]
[2018-03-18] MEDS ORDERED: Sodium Chloride 0.9% 1,000 ML IV SCH (09:00)
--- NOTE | 2018-03-18 09:57 | CARDCATH ---
PROCEDURE DATE: 03/18/2018 HISTORY: The patient is a 77-year-old woman who presents with dyspnea, CHF and chest pain. Because of her high probability for coronary artery disease given her risk factors of diabetes mellitus, hypertension and hypercholesterolemia, a cardiac catheterization was recommended. PROCEDURE: Left heart catheterization with coronary aortography and left ventriculogram with supra-aortic valvular injection. The right femoral artery was cannulated with a 6-Tajik sheath. There were no complications. I performed moderate sedation which included the presence of an independent trained observer that assisted in monitoring the patient's level of consciousness and physiologic status. After administration of Versed and fentanyl, my intra service time was 15 minutes. The findings on catheterization revealed a left ventricle that contracted normally. Estimated ejection fraction is 60%. Supra-aortic valvular injection revealed no aortic insufficiency. The patient's coronary anatomy revealed a right dominant circulation. The RCA revealed intimal irregularities without significant stenoses. The left main artery was unremarkable. The LAD and diagonal vessels revealed mild intimal irregularities without critical lesions. The circumflex artery and obtuse marginal branches were free of significant disease. The Angio-Seal was used to close the femoral artery site. The patient tolerated the procedure well. In summary, the procedure revealed normal LV function with an EF of 60%. No aortic insufficiency. Unremarkable coronary arteries. Given these findings, the patient's treatment should be a cardiac risk reduction program including control of her blood pressure with a low-salt diet. Jerardo Fowler MD
[2018-03-18] MEDS: POLYETHYLENE GLYCOL 3350 17 GM/Dose PACKET PO SCH ×2 (10:28→18:48)
[2018-03-18] MEDS: Insulin Reg-LOW-Coverage SC SCH ×4 (10:28→21:35)
[2018-03-18] MEDS: DICLOFENAC TOP SCH ×2 (11:27→18:48)
--- NOTE | 2018-03-18 13:24 | CP.PCM.PCO ---
Physician Communication Note - Physician Communication Note Physician Communication Note: PT eval post cath pending
[2018-03-18 18:49] LABS: GLYCOMARK(R) 20.4 mcg/mL (7.5-28.4)
--- NOTE | 2018-03-18 19:59 | CP.PCM.PN ---
Subjective - Date & Time of Evaluation Date of Evaluation: 03/18/18 Time of Evaluation: 11:00 - Subjective Subjective: Patient seen an examined at bedside in no acute distress. Patient was seen post heart cath without any complications. Seen at bedside with her daughters. Objective - Vital Signs/Intake and Output Vital Signs (last 24 hours): Temp Pulse Resp BP Pulse Ox 98 F 64 16 133/74 99 03/18/18 14:45 03/18/18 14:45 03/18/18 14:45 03/18/18 14:45 03/18/18 14:45 Intake and Output: 03/18/18 03/19/18 18:59 06:59 Intake Total 1000 540 Output Total 1200 0 Balance -200 540 - Medications Medications: Current Medications Acetaminophen (Tylenol 325mg Tab) 650 mg PO Q6 PRN PRN Reason: TEMP>=99.5F Acetaminophen (Tylenol 650 Mg Supp) 650 mg RC Q6H PRN PRN Reason: TEMP>=99.5F Aspirin (Ecotrin) 81 mg PO DAILY [facility] Last Admin: 03/18/18 10:27 Dose: Not Given Atorvastatin Calcium (Lipitor) 10 mg PO DAILY [facility] Last Admin: 03/18/18 12:35 Dose: 10 mg Cyanocobalamin (Vitamin B12 1000 Mcg/Ml Inj) 1,000 mcg IM DAILY [facility] Stop: 03/24/18 10:01 Last Admin: 03/18/18 12:36 Dose: 1,000 mcg Docusate Sodium (Colace) 100 mg PO TID [facility] Last Admin: 03/18/18 18:47 Dose: 100 mg Doxazosin Mesylate (Cardura) 1 mg PO DAILY [facility] Last Admin: 03/18/18 12:35 Dose: 1 mg Ergocalciferol (Drisdol 50,000 Intl Units Cap) 1 cap PO Q7D [facility] Last Admin: 03/16/18 09:15 Dose: 1 cap Fentanyl (Duragesic) 1 patch TD Q72H [facility] Last Admin: 03/18/18 18:48 Dose: 1 patch Folic Acid (Folic Acid) 1 mg PO DAILY [facility] Last Admin: 03/18/18 12:35 Dose: 1 mg Home Med (Home Med) 0 unit TOP BID [facility] Last Admin: 03/18/18 18:48 Dose: 1 unit Insulin Human Regular (Humulin R Low) 0 units SC ACHS [facility]; Protocol Last Admin: 03/18/18 16:07 Dose: Not Given Morphine Sulfate (Morphine) 1 mg IVP Q4H PRN PRN Reason: Pain, severe (8-10) Last Admin: 03/15/18 23:04 Dose: 1 mg Ondansetron HCl (Zofran Inj) 4 mg IVP Q4H PRN PRN Reason: Nausea/Vomiting Pantoprazole Sodium (Protonix Ec Tab) 40 mg PO 0600 [facility] Last Admin: 03/18/18 06:35 Dose: 40 mg Polyethylene Glycol (Miralax) 17 gm PO BID [facility] Last Admin: 03/18/18 18:48 Dose: Not Given Pregabalin (Lyrica) 25 mg PO BID [facility] Last Admin: 03/18/18 18:47 Dose: 25 mg Sennosides (Senokot Tab) 8.6 mg PO [facility] Last Admin: 03/17/18 21:56 Dose: 8.6 mg Zolpidem Tartrate (Ambien) 5 mg PO [facility]; Protocol Last Admin: 03/17/18 21:56 Dose: 5 mg - Labs Labs: 03/15/18 05:00 03/18/18 07:46 PT 13.0 SECONDS (9.4-12.5) H 03/15/18 12:30 INR 1.13 03/15/18 12:30 APTT 50.7 Seconds (25.1-36.5) H 03/17/18 06:30 - Head Exam Head Exam: ATRAUMATIC, NORMAL INSPECTION, NORMOCEPHALIC - Neck Exam Neck Exam: absent: Meningismus - Respiratory Exam Respiratory Exam: Clear to Ausculation Bilateral, NORMAL BREATHING PATTERN. absent: Rales, Rhonchi, Wheezes Additional comments: no kyphosis - GI/Abdominal Exam GI & Abdominal Exam: Soft, Normal Bowel Sounds Additional comments: soft, large abdomen - Neurological Exam Neurological Exam: Alert, Awake, Oriented x3 Additional comments: Needs assistance getting up from laying position - Psychiatric Exam Psychiatric exam: Normal Affect, Normal Mood - Skin Skin Exam: Normal Color Assessment and Plan - Assessment and Plan (Free Text) Assessment: Patient is a 77 year old female with past medical history of CVA, TIA, diabetes mellitus type II, anemia, arthritis, depression, hypertension, hyperlipidemia, chronic bilateral lower extremity pain 2/2 to diabetic neuropathy, hypovitamin D, and diverticulosis who presented with chest pain, groin pain, right arm pain, and bilateral lower extremity pain. Plan: Plan: Diffuse body aches and fatigue -Secondary to rheumatoid arthritis vs. fibromyalgia -Duloxetine 60 mg daily -Morphine 1 mg Q4 for pain Rule out CHF exacerbation -Chest CT shows evidence of pulmonary vascular congestion -Continue home bystolic -Lasix 40 mg IV daily. Potassium 40 mEq for lasix side effect of hypokalemia Atypical Chest pain -EKG: NSR -Troponinx3 negative -Continue home aspirin, lipitor, and bystolic. -S/P cardiac cath; EF 60% unremarkable coronary arteries; cardiology recommend cardiac risk stratification program which entails BP control and low salt diet Chronic lower extremity pain likely 2/2 to diabetic neuropathy -Bilateral lower extremity venous doppler negative -Continue Gabapentin 100 mg TID History of anemia -Normocytic anemia of baseline DM II -Low SSI HTN -Continue home bystolic HLD -Continue home lipitor Hypovitamin D -Bone scan reveals no evidence of metastatic disease, degenerative changes noted -Vitamin D level ordered -Currently taking no medications Gout -Continue home febuxostat Anxiety and depression -Continue with home duloxetine Insomnia -Ambien PO HS DVT prophylaxis: lovenox 40 mg daily GI prophylaxis: protonix 40 mg daily Disposition: :PT [id number] patient 6 hours post cath; recommends subacute rehab. family requests [facility]
--- NOTE | 2018-03-18 20:31 | DS ---
LOCATION: The patient is seen in room 264, bed 1. SUBJECTIVE: The patient underwent cardiac catheterization today which shows normal coronaries, normal left ventricular function. The patient's Plavix was discontinued. The patient was cleared for discharge by Cardiology. PHYSICAL EXAMINATION: VITAL SIGNS: The patient is lying in the bed post cardiac catheterization T-max 98.9, pulse 72, blood pressure 118/55, respirations 20, O2 sat 97%. HEENT: Head is normocephalic, atraumatic. HEENT examination shows pinkish conjunctivae. Anicteric sclerae. No oropharyngeal lesion. NECK: No neck rigidity. CHEST: Kyphosis. LUNGS: Shows decreased breath sound at the bases, left more than the right. CARDIOVASCULAR: S1, S2, regular rhythm. Questionable soft systolic murmur at left sternal border, right second intercostal space, left second intercostal space. ABDOMEN: Morbidly obese. No palpable hepatosplenomegaly noted. GENITALIA: Female. RECTAL: Deferred. Positive groin dressing noted. EXTREMITIES: Lower extremity shows trace swelling of the lower extremity. MUSCULOSKELETAL: Shows an elevated body mass index. Gait examination is not tested. VASCULAR: Palpable pulses. The patient's joint pain has significantly lessened since the patient is on Duragesic patch. DIAGNOSTICS: On 03/18/2018, sodium 138, potassium 4.7, chloride 101, CO2 31, BUN 27, creatinine 1.0, glucose 115, calcium 9.0. LFTs are within normal limit. FINAL IMPRESSION, PLAN, DISCHARGE DIAGNOSES: 1. Chest pain, etiology undetermined. 2. Status post cardiac catheterization. 3. Nonobstructive coronary disease. 4. Hypertension. 5. Super morbid obesity with elevated body mass index of greater than 48. 6. Normocytic anemia. 7. Status post acute kidney injury. 8. Chronic kidney disease stage III. 9. Gait dysfunction. 10. Severe degenerative joint disease of the spine, hips, knees and ankles. 11. Severe gait dysfunction. 12. Pain syndrome. 13. Polyarthralgia. 14. History of diabetes very well controlled with hemoglobin A1c in the prediabetic range. 15. Vitamin B12 deficiency. 16. Hypovitaminosis D. 17. Diastolic right-sided congestive heart failure with pulmonary hypertension and elevated right ventricular systolic pressure. 18. History of hypertension. 1. Unstable angina with abnormal electrocardiogram and anterior wall ischemia. 2. History of hypertension. 3. Sinus bradycardia. 4. Super morbid obesity with elevated body mass index of 48. 7. Acute kidney injury, probably diuretics induced. 8. Borderline vitamin B12 deficiency. 9. Hypovitaminosis D . 10. History of diabetes 12. Positive rheumatoid arthritis factor. 13. Left ventricular ejection fraction of 61%. 14. Moderate pulmonary hypertension with right ventricular systolic pressure of 48 mmHg. 15. Hypertensive cardiovascular disease with left ventricular hypertrophy. 16. Grade I abnormal relaxation pattern. 17. Mild mitral regurgitation. 18. Degenerative joint of the shoulders and knees. 19. Mild venous stasis in the upper and lower extremities. 20. Cardiomegaly. 21. Degenerative joint disease of the spine. 22. Right upper lobe pulmonary nodule. 23. A 2-mm right upper lobe pulmonary nodule. 24. Abnormal electrocardiogram. 25. Chronic anemia. 26. Constipation. 27. Neuropathy. 28. Severe pain syndrome secondary to degenerative joint disease. 29. Hyperlipidemia. 1. Chest pain, most likely unstable angina with abnormal electrocardiogram and anterior ischemia on the electrocardiogram. 2. Diffuse arthralgias and polyarthralgias and arthritis. 3. Hypertension. 4. Morbid obesity with elevated body mass index of 48. 5. Severe gait dysfunction and severe deconditioning. 6. Severe pain syndrome. 7. Normocytic anemia. 8. Mild acute kidney injury with chronic kidney disease stage III. 9. Borderline vitamin B12 deficiency and borderline hypovitaminosis D. 10. History of diabetes with hemoglobin A1c of 5.9, probably prediabetic now. 11. Positive rheumatoid factor. 12. Severe gait dysfunction. 13. Degenerative joint disease of shoulders and knees and degenerative joint disease of the feet and calcaneus. 14. A 2-mm right upper lobe pulmonary nodule. 15. Degenerative joint disease of the spine. 16. Borderline cardiomegaly. 17. Insomnia. 18. History of sinus bradycardia. 19. Diabetic neuropathy. 20. History of pulmonary hypertension. 21. Severe osteoarthritis and degenerative joint disease of the hips and knees. 22. Left ventricular ejection fraction of 60% with concentric left ventricular hypertrophy and grade 1 abnormal relaxation pattern. 23. Mildly dilated right and left atrium. 24. Mild mitral regurgitation. 25. Moderate pulmonary hypertension with mild tricuspid regurgitation and right ventricular systolic pressure of 48 mmHg. 26. Anterolateral coronary ischemia as per electrocardiogram. 27. History of transient ischemic infarct. 28. Anemia of chronic disease. 1. Diffuse myalgias. 2. History of hypertension. 3. Normocytic anemia. 4. Questionable anterior ischemia as per EKG with questionable angina. 5. History of insomnia. 6. History of sinus bradycardia. 7. Transient ischemic infarct with right-sided facial numbness and questionable dysarthria. 8. Diabetic neuropathy. 9. Pulmonary hypertension with right ventricular systolic pressure of 50 mmHg. 10. Severe osteoarthritis and degenerative joint disease of the hips and knees. 11. 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 PLAN: At this time, the patient's case has been referred to [employer] Specialist for discharge planning for evaluation of possible subacute rehab if accepted. The patient is on bedrest, post cardiac catheterization. The patient's Plavix has been discontinued as per Cardiology recommendation and evaluation. The patient will be continued on all the medications as per the MAR after which has been updated and revised. The patient will be on bedrest, post cardiac catheterization. I have spoken to the patient's family and the daughters regarding the patient's condition. The patient's family has been updated about her diagnosis and cardiac cath results by Dr. Jerardo Fowler. In addition, the patient's case has been referred to [employer]ist for discharge planning. The patient's case has been referred to physical therapy for ambulation, gait training, physical therapy, occupational therapy, ambulation therapy. At present, the patient will be considered for discharge to subacute rehab if accepted, otherwise the patient will be considered for discharge to home or transitional care unit if the patient is accepted. The patient's Plavix is discontinued. The patient will be continued on all the medications as per the MAR and if patient s discharged home, patient's home medications will be as per the prescribed medications at the time of the discharge. Dictated and electronically signed, not read. Tomás MD Yamil [facility] # [id number] [email or web address]
[2018-03-19 06:00] VITALS: RESP 18; O2SAT 96
[2018-03-19] MEDS: Pantoprazole 40 mg EC Tab PO SCH (06:45)
[2018-03-19] MEDS: Insulin Reg-LOW-Coverage SC SCH ×3 (08:28→16:30)
[2018-03-19] MEDS: DICLOFENAC TOP SCH (09:07)
[2018-03-19] MEDS: POLYETHYLENE GLYCOL 3350 17 GM/Dose PACKET PO SCH (09:07)
[2018-03-19 09:40] LABS: ALB/GLOB RATIO 1.1 (1.1-1.8); ALBUMIN 3.9 g/dL (3.0-4.8); ALT/SGPT 20 U/L (7-56); AST/SGOT 18 U/L (14-36); BLOOD UREA NITROGEN 24 mg/dL (7-21); CALCIUM 9.2 mg/dL (8.4-10.5); GFR NON-AFRICAN AMERICAN 54
--- NOTE | 2018-03-19 10:20 | CP.PCM.PN ---
Subjective - Date & Time of Evaluation Date of Evaluation: 03/19/18 Time of Evaluation: 06:45 - Subjective Subjective: Patient seen and examined at bedside. Room was changed because previous roommate was complaining. Patient states she was unable to sleep overnight due to the commotion of having to switch rooms. She is doing well however has no complaints at this time. Denies chest pain, or pain/discomfort at site of catheterization. Objective - Vital Signs/Intake and Output Vital Signs (last 24 hours): Temp Pulse Resp BP Pulse Ox 98.5 F 72 18 134/54 L 96 03/19/18 05:58 03/19/18 05:58 03/19/18 05:58 03/19/18 05:58 03/19/18 05:58 Intake and Output: 03/19/18 03/19/18 06:59 18:59 Intake Total 900 Output Total 750 Balance 150 - Medications Medications: Current Medications Acetaminophen (Tylenol 325mg Tab) 650 mg PO Q6 PRN PRN Reason: TEMP>=99.5F Acetaminophen (Tylenol 650 Mg Supp) 650 mg RC Q6H PRN PRN Reason: TEMP>=99.5F Aspirin (Ecotrin) 81 mg PO DAILY [facility] Last Admin: 03/19/18 09:06 Dose: 81 mg Atorvastatin Calcium (Lipitor) 10 mg PO DAILY [facility] Last Admin: 03/19/18 09:06 Dose: 10 mg Cyanocobalamin (Vitamin B12 1000 Mcg/Ml Inj) 1,000 mcg IM DAILY [facility] Stop: 03/24/18 10:01 Last Admin: 03/19/18 09:06 Dose: 1,000 mcg Docusate Sodium (Colace) 100 mg PO TID [facility] Last Admin: 03/19/18 09:08 Dose: Not Given Doxazosin Mesylate (Cardura) 1 mg PO DAILY [facility] Last Admin: 03/19/18 09:06 Dose: 1 mg Ergocalciferol (Drisdol 50,000 Intl Units Cap) 1 cap PO Q7D [facility] Last Admin: 03/16/18 09:15 Dose: 1 cap Fentanyl (Duragesic) 1 patch TD Q72H [facility] Last Admin: 03/18/18 18:48 Dose: 1 patch Folic Acid (Folic Acid) 1 mg PO DAILY [facility] Last Admin: 03/19/18 09:06 Dose: 1 mg Home Med (Home Med) 0 unit TOP BID [facility] Last Admin: 03/19/18 09:07 Dose: 1 unit Insulin Human Regular (Humulin R Low) 0 units SC [facility]; Protocol Last Admin: 03/19/18 08:28 Dose: 1 u Ondansetron HCl (Zofran Inj) 4 mg IVP Q4H PRN PRN Reason: Nausea/Vomiting Pantoprazole Sodium (Protonix Ec Tab) 40 mg PO 0600 [facility] Last Admin: 03/19/18 06:45 Dose: 40 mg Polyethylene Glycol (Miralax) 17 gm PO BID [facility] Last Admin: 03/19/18 09:07 Dose: Not Given Pregabalin (Lyrica) 25 mg PO BID [facility] Last Admin: 03/19/18 09:06 Dose: 25 mg Sennosides (Senokot Tab) 8.6 mg PO [facility] Last Admin: 03/18/18 21:35 Dose: 8.6 mg Zolpidem Tartrate (Ambien) 5 mg PO [facility]; Protocol Last Admin: 03/18/18 21:34 Dose: 5 mg - Labs Labs: 03/15/18 05:00 03/19/18 08:45 PT 13.0 SECONDS (9.4-12.5) H 03/15/18 12:30 INR 1.13 03/15/18 12:30 APTT 50.7 Seconds (25.1-36.5) H 03/17/18 06:30 - Constitutional Appears: Non-toxic, No Acute Distress - Head Exam Head Exam: ATRAUMATIC, NORMAL INSPECTION, NORMOCEPHALIC - Eye Exam Eye Exam: EOMI, Normal appearance - ENT Exam ENT Exam: Mucous Membranes Moist - Respiratory Exam Respiratory Exam: Clear to Ausculation Bilateral, NORMAL BREATHING PATTERN. absent: Rhonchi, Wheezes - Cardiovascular Exam Cardiovascular Exam: REGULAR RHYTHM - GI/Abdominal Exam GI & Abdominal Exam: Soft, Normal Bowel Sounds Additional comments: large abdomen - Extremities Exam Extremities Exam: Full ROM - Back Exam Back Exam: NORMAL INSPECTION - Neurological Exam Neurological Exam: Alert, Awake, Oriented x3 - Psychiatric Exam Psychiatric exam: Normal Mood - Skin Skin Exam: Dry, Normal Color Assessment and Plan - Assessment and Plan (Free Text) Assessment: Assessment: Patient is a 77 year old female with past medical history of CVA, TIA, diabetes mellitus type II, anemia, arthritis, depression, hypertension, hyperlipidemia, chronic bilateral lower extremity pain 2/2 to diabetic neuropathy, hypovitamin D, and diverticulosis who presented with chest pain, groin pain, right arm pain, and bilateral lower extremity pain. Plan: Plan: Diffuse body aches and fatigue -Secondary to rheumatoid arthritis vs. fibromyalgia -Duloxetine 60 mg daily -Morphine 1 mg Q4 for pain Rule out CHF exacerbation -Chest CT shows evidence of pulmonary vascular congestion -Continue home bystolic -Lasix 40 mg IV daily. Potassium 40 mEq for lasix side effect of hypokalemia Atypical Chest pain -EKG: NSR -Troponinx3 negative -Continue home aspirin, lipitor, and bystolic. -S/P cardiac cath; EF 60% unremarkable coronary arteries; cardiology recommend cardiac risk stratification program which entails BP control and low salt diet Chronic lower extremity pain likely 2/2 to diabetic neuropathy -Bilateral lower extremity venous doppler negative -Continue Gabapentin 100 mg TID History of anemia -Normocytic anemia of baseline DM II -Low SSI HTN -Continue home bystolic HLD -Continue home lipitor Hypovitamin D -Bone scan reveals no evidence of metastatic disease, degenerative changes noted -Vitamin D level ordered -Currently taking no medications Gout -Continue home febuxostat Anxiety and depression -Continue with home duloxetine Insomnia -Ambien PO HS DVT prophylaxis: lovenox 40 mg daily GI prophylaxis: protonix 40 mg daily Disposition: :PT [id number] patient 6 hours post cath; recommends subacute rehab. Family requests [facility]. [facility] Currently waiting to hear [facility]
[2018-03-19 12:06] VITALS: BP 116/69; PULSE 69; TEMP 98
--- NOTE | 2018-03-19 18:10 | PN ---
DATE: 03/19/2018 SUBJECTIVE: The patient is without complaints. PHYSICAL EXAMINATION: VITAL SIGNS: Blood pressure is 116/69, heart rates in the 60s. NECK: Negative JVD. HEART: S1, S2. LUNGS: Without rales. EXTREMITIES: Without edema. LABORATORY DATA: Hemoglobin was not measured today. Chemistries, BUN and creatinine unremarkable. Glucose is 106. IMPRESSION: 1. Left ventricular hypertrophy. 2. Hypertension. 3. Obesity. 4. Diabetes mellitus. 5. Nonobstructive Coronary artery disease. 6. Hypercholesterolemia. Given these findings, the patient is doing well from a cardiac perspective. We will discontinue telemetry. No further cardiac workup is necessary. Jerardo Fowler MD
--- NOTE | 2018-03-19 20:50 | DS ---
HISTORY OF PRESENT ILLNESS: The patient is now in 268, bed 1. Overnight nurse's notes were reviewed. No adverse events were documented or reported. The patient tolerated the cardiac catheterization which was done yesterday, drawing site was without any adverse events noted. The patient slept well. The patient's joint pain has been significantly less since the patient is on Duragesic patch. PHYSICAL EXAMINATION: VITAL SIGNS: T-max 98.5, heart rate 66 to 72, blood pressure 134/64, respiration 18, O2 sat 96%. HEENT: Head is normocephalic, atraumatic. HEENT examination shows pinkish conjunctivae. Anicteric sclerae. No oropharyngeal lesion. No neck rigidity. CHEST: Kyphosis. LUNGS: Shows no audible crackle, rales or wheezing. CARDIOVASCULAR: S1 and S2, regular rhythm. Questionable systolic murmur at the left sternal border, right second intercostal space, left second intercostal space. ABDOMEN: Obese, protuberant. Positive bowel sound. No palpable hepatosplenomegaly secondary to obesity. GENITALIA: Female. RECTAL: Deferred. EXTREMITIES: Shows trace swelling of the lower extremity. No pitting edema noted. MUSCULOSKELETAL: Shows an elevated body mass index of greater than 48. NEUROLOGIC: The patient is alert, awake, oriented x3. He is able to move upper and lower extremity without assistance. Gait examination is not tested secondary to morbid obesity. Cranial nerves II-XII limited. PSYCHIATRIC: Negative. DIAGNOSTICS: None from today. FINAL IMPRESSION, PLAN AND DISCHARGE DIAGNOSES: 1. Chest pain, etiology undetermined. 2. Hypertension. 3. [id number] right-sided diastolic congestive heart failure. 4. Pulmonary hypertension. 5. Severe degenerative joint disease of the spine, shoulders, knees, hips. 6. Chronic pain syndrome secondary to above. 7. Morbid obesity. 8. Well-controlled noninsulin-requiring diabetes mellitus. 9. Normocytic anemia. 10. Vitamin B12 deficiency. 11. Hypovitaminosis D. 12. Well-controlled diabetes mellitus. 13. Gastroesophageal reflux. 14. Deconditioning. 15. Gait dysfunction secondary to obesity. PLAN: At this time, the patient is seen by physical therapist and the patient's case has been referred to [employer]. The patient will be considered for discharge to TCU if accepted. If otherwise, the patient will be considered for discharge to subacute rehab if accepted. If the patient is not accepted to TCU and subacute rehab, the patient will be considered for discharge home with [facility], home physical therapy. The patient's discharge medications are as per the updated ambulatory orders and new prescriptions. If the patient is discharged home, the patient will follow up with Dr. Lobo within 1 week. If the patient is discharged to Transitional Care Unit, the patient will be followed up on Transitional Care Unit on a regular basis, and if the patient is discharged to subacute rehab, the patient will be followed up on the subacute rehab unit. During this hospitalization, the patient's family, the patient has been updated about the patient's clinical condition, diagnosis, test results, recommendation by all physician involved the care of the patient at length in layman's language. All discussions has been discussed with the patient and the family on multiple occasions and multiple times during this hospitalization. All questions concerned answered to their satisfaction. Time spent in the discharge process 45 minutes. Dictated and electronically signed, not read. Tomás Lobo MD
== END 2018-03-19 18:09 | DRG 286 ==
LOC: ED 19:11 → ERH 03-15 00:23 → 2RNO 03-15 01:23 → 2RSO 03-18 09:08 → 2RNO 03-18 17:51
PROVIDERS: ADMIT Internal Medicine; ATTEND Internal Medicine
PROC: 4A023N7 Measurement of Cardiac Sampling and Pressure, Left Heart, Percutaneous Approach (ICD-10-PCS; principal; 2018-03-18)
PROC: B211YZZ Fluoroscopy of Multiple Coronary Arteries using Other Contrast (ICD-10-PCS; 2018-03-18)
PROC: B215YZZ Fluoroscopy of Left Heart using Other Contrast (ICD-10-PCS; 2018-03-18)
PROC: B310YZZ Fluoroscopy of Thoracic Aorta using Other Contrast (ICD-10-PCS; 2018-03-18)
DX: I20.0 Unstable angina (principal); I50.33 Acute on chronic diastolic (congestive) heart failure; Z68.42 Body mass index [BMI] 45.0-49.9, adult; I13.0 Hypertensive heart and chronic kidney disease with heart failure and stage 1 through stage 4 chronic kidney disease, or unspecified chronic kidney disease; N17.9 Acute kidney failure, unspecified; E11.40 Type 2 diabetes mellitus with diabetic neuropathy, unspecified; E66.01 Morbid (severe) obesity due to excess calories; I27.20 Pulmonary hypertension, unspecified; E11.22 Type 2 diabetes mellitus with diabetic chronic kidney disease; N18.3 Chronic kidney disease, stage 3 (moderate); D63.8 Anemia in other chronic diseases classified elsewhere; G89.4 Chronic pain syndrome; E78.00 Pure hypercholesterolemia, unspecified; I87.2 Venous insufficiency (chronic) (peripheral); M79.10 Myalgia, unspecified site; F32.9 Major depressive disorder, single episode, unspecified; K57.90 Diverticulosis of intestine, part unspecified, without perforation or abscess without bleeding; N63.10 Unspecified lump in the right breast, unspecified quadrant; E53.8 Deficiency of other specified B group vitamins; E55.9 Vitamin D deficiency, unspecified; M16.0 Bilateral primary osteoarthritis of hip; M17.0 Bilateral primary osteoarthritis of knee; M19.011 Primary osteoarthritis, right shoulder; M19.012 Primary osteoarthritis, left shoulder; M47.9 Spondylosis, unspecified; G47.00 Insomnia, unspecified; Z86.73 Personal history of transient ischemic attack (TIA), and cerebral infarction without residual deficits; Z85.028 Personal history of other malignant neoplasm of stomach; Z85.3 Personal history of malignant neoplasm of breast; Z85.43 Personal history of malignant neoplasm of ovary